=== PATIENT | female | born 1970 | race Caucasian/White ===

== ENCOUNTER 2016-09-25 07:52 | Day surgery (SDC) | payer BC ==
[~2016-09-25 07:52] MED LIST: Midazolam 1 MG/ML 2 ML SDV ONE; Propofol 200 MG/20 ML SDV ONE; fentaNYL 100 MCG/2 ML SDV ONE
[2016-09-25] MEDS ORDERED: Sodium Chloride 0.9% 1,000 ML IV SCH (08:30)
[2016-09-25] MEDS ORDERED: Ciprofloxacin in D5W 400 MG in Premix Bag 1 BAG IV ONE ×2 (09:00)
[2016-09-25] MEDS ORDERED: Acetylcysteine 600 MG, Water For Injection,Sterile 57 ML ONE ×2 (09:15)
[2016-09-25] MEDS ORDERED: Propofol 200 MG/20 ML SDV ONE (09:18)
[2016-09-25] MEDS ORDERED: Lidocaine 2% 60 ML, Alum Hydrox/Mag Hydrox/Simeth 360 ML PO PRN ×2 (10:21)
[2016-09-25 10:47] VITALS: BP 104/68
--- NOTE | 2016-09-26 11:39 | OR ---
DATE OF PROCEDURE: 09/25/2016 PROCEDURE PERFORMED: Radiofrequency ablation of Espinoza's esophagus (Barrx). COMPLICATIONS: None. HATCHERY SUPERVISOR: None. ANESTHESIA: MAC. RISKS: Risks, benefits, alternatives, and limitations, including, but not limited to infection, bleeding, chronic pain, chest pain, perforation, requirement for multiple procedures, scarring formation, and other risks not listed here were explained to the patient and wished to proceed. PROCEDURE IN DETAIL: The patient was placed in the left lateral decubitus position. The EGD scope was introduced and advanced to identify the landmarks. The FRANCISCO landmark was identified at 30 cm and a TGF landmark was identified at 35 cm. The area to be ablated was irrigated with N-acetylcysteine using the full amount. The TGF and FRANCISCO were then verified a 2nd time. The sheath guidewire was then introduced. The endoscope was removed as the guidewire was remained in place. Of note, the guidewire was not advanced during removal to decrease the chance of perforation. The Barrx 360 express RFA balloon catheter was then advanced over the guidewire. The scope was lightly removed and reintroduced for direct visualization. The proximal edge of the 360 catheter was noted to be 1 cm above the FRANCISCO. Using the automated inflation and ablation system, this was performed. Per standard protocol, this was then moved distally approximately 4 cm and the distal end of the treatment TGF. The endoscope and the ablation catheter and guide wire were all together removed as one and single unit. The Barrx RFA cleaning cap was then placed on the endoscope and used to remove the coagulated tissue. The catheter was then cleaned outside of the patient by the surgical technicians. The processes were then repeated with introduction of a guide wire followed by the balloon and the catheter. This process was then performed in a same manner, same fashion, same technique, and the same equipment. The device was then removed. The EDG scope was used to introduce and evaluate the area. There was no significant bleeding. The target areas had been completely ablated. Of note, prior to start of the procedure, the scope was then introduced and was advanced atraumatically into the duodenum. The device was then removed. The patient tolerated the procedure well. Donnell Dewitt MD /[id number]
== END 2016-09-25 11:15 | disposition home or self-care (01) ==
LOC: JP.SDS 07:52
PROVIDERS: ATTEND Surgery
DX: K22.70 Barrett's esophagus without dysplasia (principal); K21.9 Gastro-esophageal reflux disease without esophagitis; E11.9 Type 2 diabetes mellitus without complications; Z88.0 Allergy status to penicillin; F17.210 Nicotine dependence, cigarettes, uncomplicated; Z90.710 Acquired absence of both cervix and uterus
CPT/HCPCS: 43270; A9270; C1713; J0744; J2250; J2704; J3010; J7040; C1886

== ENCOUNTER 2016-12-04 06:13 | Day surgery (SDC) | payer BC ==
[~2016-12-04 06:13] MED LIST changes: -Midazolam 1 MG/ML 2 ML SDV ONE; -Propofol 200 MG/20 ML SDV ONE; +Sodium Chloride 0.9% 1,000 ML IV SCH; -fentaNYL 100 MCG/2 ML SDV ONE
[2016-12-04] MEDS ORDERED: fentaNYL 100 MCG/2 ML SDV ONE (06:59)
[2016-12-04] MEDS ORDERED: Midazolam 1 MG/ML 2 ML SDV ONE (06:59)
[2016-12-04] MEDS ORDERED: Propofol 200 MG/20 ML SDV ONE ×2 (06:59→08:06)
[2016-12-04] MEDS ORDERED: Sodium Chloride 0.9% 1,000 ML IV SCH (07:00)
[2016-12-04] MEDS ORDERED: Glycopyrrolate 0.2 MG/ML 2 ML SDV ONE (07:33)
[2016-12-04] MEDS ORDERED: Acetylcysteine 600 MG, Water For Injection,Sterile 57 ML ONE ×2 (07:45)
[2016-12-04 09:22] VITALS: BP 120/69
--- NOTE | 2016-12-04 13:44 | OR ---
DATE OF PROCEDURE: 12/04/2016 PROCEDURE: Radiofrequency ablation of Espinoza's esophagus (Barrx). COMPLICATIONS: None. METAL WEIGHER: None. ANESTHESIA: MAC. RISKS: Risks, benefits, alternatives, and limitations including, but not to infection, bleeding, chronic pain, chest pain, perforation, requirement for multiple procedures, scarring formation, and other risks not listed here were explained to the patient, and she wished to proceed. PROCEDURE IN DETAIL: The patient was placed in left lateral decubitus position. The EGD scope was introduced and advanced atraumatically to identify the landmarks. The top of the gastric folds was noted at 35 and the top of FRANCISCO landmark was identified at 33. The area to be ablated was irrigated and n-acetylcysteine using the full amount. The FRANCISCO and TGF were then verified a second time. The guidewire was then introduced. The endoscope was removed, and the guidewire was pinned into place. Of note, the guidewires were not advanced during removal to decrease the chance of perforation. The Barrx 360 Express RFA balloon was then advanced over the guidewire. The scope was then reintroduced, and the FRANCISCO and TGF were reverified with good overlapping of the 360 catheter to be 1 cm proximal to the FRANCISCO location. Using the automated inflation and ablation system, this was then executed. Per standard protocol, this was then removed, and the ablation catheter and guidewire were removed at the same time. The Barrx cleaning cap was then placed on the endoscope and used to remove the coagulated tissue. The catheter was cleaned outside the patient by the surgical technicians. The process was then repeated with introduction of the guidewire followed by the balloon and the catheter. This process was then performed in the same manner, same fashion, same technique, and using the same equipment the second time. The device was then removed. No abnormalities were noted. The patient tolerated the procedure well. Donnell Dewitt MD /[id number]
== END 2016-12-04 09:45 | disposition home or self-care (01) ==
LOC: JP.SDS 06:13
PROVIDERS: ATTEND Surgery
DX: K22.70 Barrett's esophagus without dysplasia (principal); E11.9 Type 2 diabetes mellitus without complications; E78.00 Pure hypercholesterolemia, unspecified; K21.9 Gastro-esophageal reflux disease without esophagitis; F41.9 Anxiety disorder, unspecified; F32.9 Major depressive disorder, single episode, unspecified; Z88.0 Allergy status to penicillin; Z87.891 Personal history of nicotine dependence; Z90.710 Acquired absence of both cervix and uterus
CPT/HCPCS: 43270; C1713; C1886; J2250; J2704; J3010; J7040; J3490

== ENCOUNTER 2017-01-20 06:44 | Day surgery (SDC) | payer BC ==
[2017-01-20] MEDS ORDERED: Sodium Chloride 0.9% 1,000 ML IV SCH (07:30)
[2017-01-20] MEDS ORDERED: fentaNYL 100 MCG/2 ML SDV ONE (08:21)
[2017-01-20] MEDS ORDERED: Propofol 200 MG/20 ML SDV ONE (08:21)
[2017-01-20] MEDS ORDERED: Midazolam 1 MG/ML 2 ML SDV ONE (08:21)
[2017-01-20] MEDS ORDERED: Acetylcysteine 600 MG, Water For Injection,Sterile 57 ML ONE ×2 (08:30)
[2017-01-20 10:43] VITALS: BP 102/76
[2017-01-20] MEDS ORDERED: Alum Hydrox/Mag Hydrox/Simeth 360 ML, Lidocaine 2% 60 ML PO SCH ×2 (11:00)
--- NOTE | 2017-01-21 10:30 | OR ---
DATE OF PROCEDURE: 01/20/2017 PROCEDURE: Barrx radiofrequency ablation of Espinoza's esophagus. COMPLICATIONS: None. WATER POLLUTION CONTROL TECHNICIAN: None. ANESTHESIA: MAC. Ablation #3. FINDINGS: Significant improvement of Espinoza's esophagus. RISKS: Risks, benefits, alternatives, limitations including, but not limited to infection, bleeding, injury, such as perforation, chronic pain, and other risks not listed here were explained to the patient. PROCEDURE IN DETAIL: The patient was placed in left lateral decubitus position. The EGD scope was introduced and advanced atraumatically to the duodenum. Within the stomach, this was all benign appearing. The top of the gastric folds and top of the intestinal metaplasia were noted at 45 and 47. A 90-degree ablation technique was performed using 7 segments in a clockwise fashion, starting at 12 o'clock. This was performed by removing the EGD scope and reintroducing with a 90-degree overlay. Direct energy was applied as the device was applied in each of the 7 areas. 5% overlap was also noted. This was then scraped off and repeated a second time, and this was then repeated a second time. The remainder of the esophagus was normal. The patient tolerated the procedure well. Donnell Dewitt MD /[id number]
== END 2017-01-20 11:05 | disposition home or self-care (01) ==
LOC: JP.SDS 06:44
PROVIDERS: ATTEND Surgery
DX: K22.70 Barrett's esophagus without dysplasia (principal); K21.9 Gastro-esophageal reflux disease without esophagitis; E11.9 Type 2 diabetes mellitus without complications; Z87.891 Personal history of nicotine dependence; Z88.0 Allergy status to penicillin
CPT/HCPCS: 43499; A9270; C1713; J2250; J2704; J3010; J7040